=== PATIENT | female | born 2000 | race Caucasian/White ===

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

== ENCOUNTER 2023-12-15 13:19 | Emergency (ER) | payer OTHER, SELFPAY ==
--- NOTE | 2023-12-15 13:28 | ED.URI ---
HPI - URI/Sore Throat General Chief Complaint: Upper Respiratory Infection Stated Complaint: SINUS PAIN/LOSING VOICE/CONGESTION Source: patient and RN notes reviewed Mode of arrival: ambulatory Limitations: no limitations History of Present Illness HPI Narrative: 22 year old female presented for complaint of sinus pressure and congestion, sore throat, and cough over the past 3-4 weeks. Pain is mostly in the forehead and between the eyes. She endorses few days for symptoms returned. She has been taking Flonase and Claritin daily, and had DayQuil and NyQuil. Denies shortness of breath, wheezing nausea vomiting diarrhea, fevers or chills. MD elicited complaint: cough Related Data Allergies Allergy/AdvReac Type Severity Reaction Status Date / Time bacitracin Allergy Unknown redness Verified 12/15/23 13:29 and edema to eyes erythromycin base Allergy Unknown redness Verified 12/15/23 13:29 and swelling of eyelid. gramicidin D Allergy Unknown redness Verified 12/15/23 13:29 and edema to eyes polymyxin B Allergy Unknown redenss Verified 12/15/23 13:29 and edema to eyes Review of Systems Review of Systems: CONSTITUTIONAL: Denies malaise, chills, sweats, fever EYES: Denies visual changes, redness, or discharge ENT: Reports rhinorrhea, congestion, sinus pain, sore throat CARDIOVASCULAR: Denies chest pain, palpitations, edema RESPIRATORY: Reports cough, post nasal drainage. Denies dyspnea GASTROINTESTINAL: Denies abdominal pain, nausea, vomiting, diarrhea SKIN: Denies rash or itching MUSCULOSKELETAL: Denies myalgia PMFSH Past Medical History Medical History Closed head injury Compound nevus of back Delayed milestones Family History Family History Grandparent Family history of cardiovascular disease Diabetes mellitus Hypertension Family history of malignant neoplasm Family history of malignant melanoma Family history of malignant neoplasm of breast Family history of congestive heart failure Mother Depression Father Hypertension Family history of gastrointestinal disorder Family history of elevated blood lipids Other Family history of malignant neoplasm of testis Social History Social History Smoking status: Never smoker Second hand tobacco smoke exposure: No Alcohol intake: never Substance use: never Substance use type: does not use Lack of Transportation: No Lack of Food: Never True Current Housing: I Have Housing Concerned About Future Housing: No Difficulty Paying Gas/Electric Bills: No Difficulty Paying for Meds: No Currently Unemployed: No Education: High School Diploma/GED Difficulty w/ Childcare or Family Care: No Occupation/Education: student Additional occupation/education comments: College in [place] Exam Narrative: GENERAL: well-appearing, nontoxic no acute distress. EYES: PERRLA, conjunctivae clear ENT: Mucous membranes moist. TM pearly de santiago with dull light reflex bilaterally; no tragal tenderness. Oropharynx not erythematous without lesions or exudate, no drooling, no hoarseness, no trismus, uvula midline. No tripod positioning, muffled voice, soft palate or pharyngeal wall bulging NECK: Supple. No lymphadenopathy CHEST: Clear to auscultation, breath sounds equal. No wheezing, rhonchi, rales, or stridor. No respiratory distress, speaks in full sentences. HEART: Regular rate and rhythm. No murmur heard. SKIN: Warm, dry, no rash. NEURO: Alert and oriented x3. PSYCH: Normal mood and affect Course Course Emergency Course: Patient is aware of diagnosis, understands and agrees to treatment plan. Anticipatory guidance given. Patient agrees to follow-up as directed and is aware of reasons to seek care at the emergency department. Portions
[2023-12-15 13:30] VITALS: BP 140/84; PULSE 89; RESP 16; TEMP 37; O2SAT 100
[2023-12-15 13:31] VITALS: BP 140/84; PULSE 89; RESP 16; TEMP 37; O2SAT 100
== END 2023-12-15 13:36 | disposition home or self-care (01) ==
PROVIDERS: Emergency Provider Nurse Practitioner Family; PCP Family Medicine
DX: J32.9 Chronic sinusitis, unspecified (principal)
CPT/HCPCS: 99213; G0463

== ENCOUNTER 2024-03-30 11:07 | Emergency (ER) | payer OTHER, SELFPAY ==
[2024-03-30 11:21] VITALS: BP 100/88; PULSE 103; RESP 16; TEMP 37.1; O2SAT 100
[2024-03-30 11:31] LABS: EDUAAPPEAR Cloudy; EDUABILI 1+; EDUABLOOD Trace; EDUACOLOR1 Yellow; EDUAGLUCOSE Negative; EDUAKETONE Negative; EDUALEUKO 2+; EDUANITRATE Negative; EDUAPROTEIN 2+
--- NOTE | 2024-03-30 11:35 | ED.GENADULT ---
HPI - General Adult General Chief complaint: Urogenital-Female Stated complaint: BURNING URINATION Time Seen by Provider: 03/30/24 11:29 Source: patient, RN notes reviewed and old records reviewed Mode of arrival: ambulatory Limitations: no limitations History of Present Illness HPI narrative: 23-year-old female to Express Care for complaint pain and burning with urination as well as lower back pain for approximately 5 days. Patient endorses history of urinary tract infection approximately 19 months ago. Patient denies fever, nausea, vomiting, bowel changes, hematuria, urinary incontinence, frequency, urgency. Patient tachycardic in triage. Patient resting in exam room comfortably. Respirations even and nonlabored. Patient able to tolerate fluids by mouth. Patient in no acute distress. Related Data Allergies Allergy/AdvReac Type Severity Reaction Status Date / Time bacitracin Allergy Unknown redness Verified 03/30/24 12:16 and edema to eyes erythromycin base Allergy Unknown redness Verified 03/30/24 12:16 and swelling of eyelid. gramicidin D Allergy Unknown redness Verified 03/30/24 12:16 and edema to eyes polymyxin B Allergy Unknown redenss Verified 03/30/24 12:16 and edema to eyes Review of Systems Review of Systems: All systems reviewed & are unremarkable except as noted in HPI and below Constitutional: Constitutional: Reports no additional constitutional complaints Eyes: Eyes: Reports no additional eye complaints ENT: Reports system reviewed and no additional complaints, except as documented Cardiovascular: Cardiovascular: Reports no additional cardiovascular complaints, Denies chest pain and Denies dyspnea Respiratory: Respiratory: Reports no additional respiratory complaints, Denies cough and Denies dyspnea Genitourinary: Genitourinary: Reports as per HPI and Reports dysuria Musculoskeletal: Musculoskeletal: Reports no additional musculoskeletal complaints Neurologic: Reports system reviewed and no additional complaints, except as documented Psychiatric: Psychiatric: Reports no additional psychiatric complaints [facility] Past Medical History Medical History Closed head injury Compound nevus of back Delayed milestones Family History Family History Grandparent Family history of cardiovascular disease Diabetes mellitus Hypertension Family history of malignant neoplasm Family history of malignant melanoma Family history of malignant neoplasm of breast Family history of congestive heart failure Mother Depression Father Hypertension Family history of gastrointestinal disorder Family history of elevated blood lipids Other Family history of malignant neoplasm of testis Social History Social History Smoking status: Never smoker Second hand tobacco smoke exposure: No Alcohol intake: never Substance use: never Substance use type: does not use Lack of Transportation: No Lack of Food: Never True Current Housing: I Have Housing Concerned About Future Housing: No Difficulty Paying Gas/Electric Bills: No Difficulty Paying for Meds: No Currently Unemployed: No Education: High School Diploma/GED Difficulty w/ Childcare or Family Care: No Occupation/Education: student Additional occupation/education comments: College in [place] Comments At the time of my signature, I reviewed and agree with the nursing past medical, surgical, social, and family history. There is no relevant family history pertinent to the patient complaint. Exam Const: General: cooperative, healthy appearing, comfortable, no acute distress, alert and well nourished Nutritional Appearance: well nourished Orientation/consciousness: patient oriented x3 Limitations: no limitat
== END 2024-03-30 12:01 | disposition home or self-care (01) ==
PROVIDERS: Emergency Provider Nurse Practitioner Family; PCP Family Medicine
DX: N39.0 Urinary tract infection, site not specified (principal)
CPT/HCPCS: 81003; 87077; 87086; 87088; 99213; G0463

== ENCOUNTER 2024-11-25 14:27 | Emergency (ER) | payer OTHER, SELFPAY ==
--- NOTE | 2024-11-25 15:05 | ED.URI ---
HPI - URI/Sore Throat General Chief Complaint: Upper Respiratory Infection Stated Complaint: SINUS/NOT SLEEPING Time Seen by Provider: 11/25/24 15:00 Source: patient and RN notes reviewed Mode of arrival: ambulatory Limitations: no limitations History of Present Illness HPI Narrative: Patient presents today with a 10 day history of headache, nasal congestion, cough, postnasal drainage. She has also been having difficulty sleeping due to her symptoms. Denies fever or shortness of breath. She has tried Claritin, DayQuil, and NyQuil without much relief. Related Data Allergies Allergy/AdvReac Type Severity Reaction Status Date / Time bacitracin Allergy Unknown redness Verified 11/25/24 15:09 and edema to eyes erythromycin base Allergy Unknown redness Verified 11/25/24 15:09 and swelling of eyelid. gramicidin D Allergy Unknown redness Verified 11/25/24 15:09 and edema to eyes polymyxin B Allergy Unknown redenss Verified 11/25/24 15:09 and edema to eyes Review of Systems Review of Systems: CONSTITUTIONAL: Denies body aches, fever, chills, or sweats. EYES: Denies visual changes, redness, or discharge. ENT: Denies rhinorrhea, sore throat, or otalgia.+ congestion, postnasal drip CARDIOVASCULAR: Denies chest pain, palpitations, or edema. RESPIRATORY: Denies dyspnea.+ cough GASTROINTESTINAL: Denies abdominal pain, nausea, vomiting, or diarrhea. GENITOURINARY: Denies dysuria or hematuria. SKIN: Denies rash, itching, or wounds. MUSCULOSKELETAL: Denies back pain, joint pain, or myalgia. NEUROLOGIC: Denies numbness, tingling, or weakness.+ headache PSYCH: Denies depression or anxiety. [facility] Past Medical History Medical History Closed head injury Compound nevus of back Delayed milestones Family History Family History Grandparent Family history of cardiovascular disease Diabetes mellitus Hypertension Family history of malignant neoplasm Family history of malignant melanoma Family history of malignant neoplasm of breast Family history of congestive heart failure Mother Depression Father Hypertension Family history of gastrointestinal disorder Family history of elevated blood lipids Other Family history of malignant neoplasm of testis Social History Social History Smoking status: Never smoker Second hand tobacco smoke exposure: No Alcohol intake: never Substance use: never Substance use type: does not use Lack of Transportation: No Lack of Food: Never True Current Housing: I Have Housing Concerned About Future Housing: No Difficulty Paying Gas/Electric Bills: No Difficulty Paying for Meds: No Currently Unemployed: No Education: High School Diploma/GED Difficulty w/ Childcare or Family Care: No Occupation/Education: student Additional occupation/education comments: College in [place] Comments At time of signature, I have reviewed and agree with nursing past medical, surgical, social and family history unless otherwise noted. Please see nursing chart for further information. There is no relevant family history pertinent to the presenting complaint Exam Narrative: GENERAL: Well-appearing, well-nourished, and in no acute distress. HEAD: Normocephalic, atraumatic. EYES: EOMI. No redness or drainage. Conjunctivae normal. ENT: Mucous membranes pink and moist. Nares mildly congested with rhinorrhea. Bilateral frontal and maxillary sinus tenderness. TMs normal bilaterally. Throat normal. Uvula midline. NECK: Normal AROM. Supple. No lymphadenopathy. CHEST: No respiratory distress. Clear to auscultation. HEART: Regular rate and rhythm. No murmur appreciated. EXTREMITIES: Normal range of motion. No edema. SKIN: Warm, dry, no rash. Capillary refill normal. Normal skin turgor. NEURO: No focal deficits. Alert and oriented x3. Gait steady. PSYCH: Normal affect. No signs of depression or anxiety. Course Course Level of Care: Express Care Visit MDM - URI/Sore Throat MDM Narrative Medical decision making narrative: Patient will be treated with Augmentin for bacterial sinusitis. Recommend continuing OTC medications such as NSAIDs and Tylenol for symptom control. Patient agrees with plan. Anticipatory guidance given. Differential Diagnosis Differential diagnosis: Likely upper respiratory infection, sinusitis, viral infection and bronchitis Critical Care Time Critical Care Time Critical Care Time: No Discharge Plan Discharge Clinical Impression: Sinusitis Qualifiers: Sinusitis location: unspecified location Chronicity: acute Recurrence: non-recurrent Qualified Code(s): J01.90 - Acute sinusitis, unspecified Patient Disposition: Home Condition: Stable Instructions: Sinusitis (ED) Additional Instructions: Please take the Augmentin as prescribed until gone. Continue [id number] medications such as ibuprofen, Tylenol for pain. Consider Flonase to help with nasal congestion and postnasal drip. Follow-up with your PCP in 3 days if symptoms are not improving Patient Language: Emirati Prescriptions: New amoxicillin-pot clavulanate 875-125 mg tablet 1 tablet PO Q12H 7 Days Qty: 14 0RF No Action amitriptyline 10 mg tablet 30 mg PO QHS Qty: 270 3RF sertraline [Zoloft] 50 mg tablet 50 mg PO DAILY Qty: 90 1RF lisdexamfetamine [Vyvanse] 40 mg capsule 40 mg PO DAILY Qty: 30 0RF Rx Instructions: DECEMBER lisdexamfetamine [Vyvanse] 40 mg capsule 40 mg PO QAM Qty: 30 0RF Rx Instructions: JANUARY lisdexamfetamine [Vyvanse] 40 mg capsule 40 mg PO DAILY Qty: 30 0RF Rx Instructions: November Follow-up/Referrals: Prema Lassiter MD [Primary Care Provider] - Time of Disposition: 15:10
[2024-11-25 15:09] VITALS: BP 109/76; PULSE 99; RESP 16; TEMP 36.7; O2SAT 100
== END 2024-11-25 15:16 | disposition home or self-care (01) ==
PROVIDERS: Emergency Provider Nurse Practitioner; PCP Family Medicine
DX: J01.90 Acute sinusitis, unspecified (principal)
CPT/HCPCS: 99213; G0463

== ENCOUNTER 2024-12-13 18:56 | Emergency (ER) | payer OTHER, SELFPAY ==
[2024-12-13 19:04] VITALS: BP 107/76; PULSE 106; RESP 16; TEMP 36.5; O2SAT 100
--- NOTE | 2024-12-13 19:07 | ED.URI ---
HPI - URI/Sore Throat General Chief Complaint: Upper Respiratory Infection Stated Complaint: HEADACHE/SINUS CONGESTION/COUGH Time Seen by Provider: 12/13/24 19:08 Source: patient and RN notes reviewed Mode of arrival: ambulatory Limitations: no limitations History of Present Illness HPI Narrative: 24 y/o female presented for c/o nasal congestion and sinus pressure and headache worsening x4 days. Says these symptoms are the same as the sinus infection she was treated for over one week ago. She completed the abx as prescribed, and felt better for about one week. Taking claritin and ibuprofen. MD elicited complaint: cough Related Data Allergies Allergy/AdvReac Type Severity Reaction Status Date / Time bacitracin Allergy Unknown redness Verified 12/13/24 19:01 and edema to eyes erythromycin base Allergy Unknown redness Verified 12/13/24 19:01 and swelling of eyelid. gramicidin D Allergy Unknown redness Verified 12/13/24 19:01 and edema to eyes polymyxin B Allergy Unknown redenss Verified 12/13/24 19:01 and edema to eyes Review of Systems Review of Systems: CONSTITUTIONAL: Denies malaise, body aches, chills, sweats, fever EYES: Denies visual changes, redness, or discharge ENT: Reports rhinorrhea, congestion, sinus pain, otalgia CARDIOVASCULAR: Denies chest pain, palpitations, edema RESPIRATORY: Denies dyspnea GASTROINTESTINAL: Denies abdominal pain, nausea, vomiting, diarrhea SKIN: Denies rash NEUROLOGIC: Denies headache [facility] Past Medical History Medical History Closed head injury Compound nevus of back Delayed milestones Family History Family History Grandparent Family history of cardiovascular disease Diabetes mellitus Hypertension Family history of malignant neoplasm Family history of malignant melanoma Family history of malignant neoplasm of breast Family history of congestive heart failure Mother Depression Father Hypertension Family history of gastrointestinal disorder Family history of elevated blood lipids Other Family history of malignant neoplasm of testis Social History Social History Smoking status: Never smoker Second hand tobacco smoke exposure: No Alcohol intake: never Substance use: never Substance use type: does not use Lack of Transportation: No Lack of Food: Never True Current Housing: I Have Housing Concerned About Future Housing: No Difficulty Paying Gas/Electric Bills: No Difficulty Paying for Meds: No Currently Unemployed: No Education: High School Diploma/GED Difficulty w/ Childcare or Family Care: No Occupation/Education: student Additional occupation/education comments: College in [place] Exam Narrative: GENERAL: mildly ill-appearing, nontoxic no acute distress. EYES: conjunctivae clear ENT: Mucous membranes moist. TM pearly de santiago with dull light reflex bilaterally; no tragal tenderness. Oropharynx not erythematous without lesions or exudate, no drooling, no hoarseness, no trismus, uvula midline. No tripod positioning, muffled voice, soft palate or pharyngeal wall bulging NECK: Supple. No lymphadenopathy CHEST: Clear to auscultation, breath sounds equal. HEART: Regular rate and rhythm. SKIN: Warm, dry, no rash. NEURO: Alert and oriented x3. PSYCH: Normal mood and affect Course Course Emergency Course: Patient is aware of diagnosis, understands and agrees to treatment plan. Anticipatory guidance given. Patient agrees to follow-up as directed and is aware of reasons to seek care at the emergency department. Portions of this record may have been created with voice recognition software Level of Care: Express Care Visit Vital Signs Vital signs: Vital Signs Temperature 97.7 F 12/13/24 19:04 Pulse Rate 106 H 12/13/24 19:04 Respiratory Rate 16 12/13/24 19:04 Blood Pressure 107/76 12/13/24 19:04 Pulse Oximetry 100 12/13/24 19:04 Temperature 97.7 F 12/13/24 19:04 Pulse Rate 106 H 12/13/24 19:04 Respiratory Rate 16 12/13/24 19:04 Blood Pressure 107/76 12/13/24 19:04 Pulse Oximetry 100 12/13/24 19:04 reviewed MDM - URI/Sore Throat MDM Narrative Medical decision making narrative: Discussed physical exam findings. Advised supportive measures and signs/symptoms to go to the ER. Pt is appropriate for outpt treatment and f/u. Differential Diagnosis Differential diagnosis: Likely upper respiratory infection, sinusitis and viral infection Discharge Plan Discharge Clinical Impression: Upper respiratory infection Patient Disposition: Home Condition: Stable Instructions: Antibiotic Form, Upper Respiratory Infection (ED) Additional Instructions: Recommendations: Flonase spray and Zyrtec (or Claritin/Ness) Tylenol 1000mg every 8 hours as needed for pain Symptomatic treatment includes: rest, fluids, and increase humidity of the air at home. Follow up with your primary care provider in 1 week. Go to the ER for worsening symptoms or concerns. Patient Language: Yakut Prescriptions: New doxycycline hyclate 100 mg tablet 100 mg PO BID 7 Days Qty: 14 0RF No Action amitriptyline 10 mg tablet 30 mg PO QHS Qty: 270 3RF sertraline [Zoloft] 50 mg tablet 50 mg PO DAILY Qty: 90 1RF lisdexamfetamine [Vyvanse] 40 mg capsule 40 mg PO QAM Qty: 30 0RF Rx Instructions: MAY Follow-up/Referrals: Prema Lassiter MD [Primary Care Provider] -
== END 2024-12-13 19:45 | disposition home or self-care (01) ==
PROVIDERS: PCP Family Medicine
DX: J06.9 Acute upper respiratory infection, unspecified (principal)
CPT/HCPCS: 99213; G0463